=== PATIENT | female | born 1970 | race Caucasian/White ===

== ENCOUNTER 2016-05-12 18:45 | Emergency (ER) | payer OTHER ==
[2016-05-12 19:20] VITALS: TEMP 98.1; BMI 33.3
[2016-05-12] MEDS ORDERED: SODIUM CHLORIDE 500 ML IV STA (19:26)
[2016-05-12] MEDS ORDERED: METOCLOPRAMIDE HCL INJECTION 10 MG/2 ML VIAL IVPB ONE (19:26)
[2016-05-12] MEDS ORDERED: METOCLOPRAMIDE HCL INJECTION 10 MG/2 ML VIAL ONE (19:53)
--- NOTE | 2016-05-12 19:54 | PDOC ---
History of Present Illness - General Chief Complaint: Chest Pain Stated Complaint: CHEST PAIN Time Seen by Provider: 05/12/16 19:17 History Source: Patient, Family Exam Limitations: Language Barrier - History of Present Illness Initial Comments: 05/12/16 19:56 46yo Female patient with hx of DM, HTN, HLD, and Asthma presents to ED with Daughter c/o chest pain. Per daughter translate that patient was cooking when she experienced sharp chest pain from left side to right side down right arm, and she began screaming. Daughter called 911. Daughter also describes that recently while shopping at [employer] in [facility], she fell to her knees and this is when the symptoms or chest pains began. Patient currently taking Tramadol and Flexeril for pain but is unable to tolerate the medications due to vomiting. Denies n/v/d, fever, back pain, diff breathing, rash, abd pain, or any other complaints at this time. ---Dr. Heller PCP. Presenting Symptoms: Chest Pain Timing/Duration: denies: constant, getting worse, changing over time, intermittent, resolved prior to arrival, gone now, other Severity/Quality: reports: moderate, sharp. denies: mild, severe, aching, burning, dull, ingestion, pressure, stabbing, tearing, tightness, other Location: reports: substernal. denies: central, epigastric, shoulder, back, abdomen, other Chest Pain Radiation: reports: arms. denies: no radiation, jaw, neck, shoulders , back, sternal notch, epigastric, other Activities at Onset: reports: no specific activity Aspirin Received prior to arrival (Core Measure): Yes: 81 mg x 1, provided at home Associated Symptoms: No: Denies symptoms, Abdominal pain, Back Pain, Cough, Chest Pain/pressure, Diaphoresis, Dizziness, Edema, Fatigue, Fever/chills, Headache, Heartburn, Loss of Appetite, Nausea, Palpitations, Rash, Shortness of Breath, Swelling/lump in chest, Syncope, Vomiting, Weakness Past History - Travel Traveled outside of the country in the last 30 days: No Close contact w/someone who was outside of country & ill: No - Past Medical History Allergies/Adverse Reactions: Allergies Allergy/AdvReac Type Severity Reaction Status Date / Time No Known Allergies Allergy Verified 08/30/15 13:02 Home Medications: Ambulatory Orders Aspirin [ASA -] 81 mg PO DAILY 08/30/15 Isosorbide Mononitrate [Imdur -] 30 mg PO DAILY 08/30/15 Metformin HCl [Glucophage] PO BID 08/30/15 Acetaminophen [Tylenol .Regular Strength -] 650 mg PO Q6H PRN #0 tablet Valsartan [Diovan] 160 mg PO DAILY #30 tablet 08/31/15 Exenatide Microspheres [Bydureon Pen] 2 mg SQ ASDIR 05/12/16 Hydrocodone/Acetaminophen [[place] 5-325 Tablet] 1 each PO Q6H PRN #12 tablet MDD 4 tabs 05/12/16 Hydrocortisone 2.5% Lotion [Hytone 2.5% Lotion -] 1 applic TP DAILY 05/12/16 Metformin HCl [Glucophage -] 500 mg PO BID 05/12/16 Methocarbamol [Robaxin -] 500 mg PO Q6H PRN #20 tablet 05/12/16 Asthma: Yes Cancer: No Cardiac Disorders: No CVA: No CHF: No Dementia: No Diabetes: Yes GI Disorders: (GRD) Disorders: No HTN: Yes Hypercholesterolemia: Yes Liver Disease: No Seizures: No Thyroid Disease: No - Surgical History Cholecystectomy: Yes - Immunization History Immunization Up to Date: Yes - Psycho/Social/Smoking Cessation Hx Anxiety: No Suicidal Ideation: No Smoking Status: Yes (1pk/day) Smoking History: Current every day smoker Have you smoked in the past 12 months: Yes Number of Cigarettes Smoked Daily: 10 Information on smoking cessation initiated: No 'Breaking Loose' booklet given: 08/30/15 Hx Alcohol Use: No Drug/Substance Use Hx: No Substance Use Type: None Cardiac Specific PMH - Complaint Specific PMHX Abdominal Aortic Aneurysm: No Angina: No Cardiac Arrhythmia: No Cardiac Stent: No GERD: No Myocardial Infarction: No Pacemaker: No Pulmonary Embolus: No Valvular Heart Disease: No Peripheral Vascular Disease: No Review of Systems - Review of Systems Able to Perform ROS?: Yes Is the patient limited Yi proficient: No Constitutional: No: Chills, Fever Respiratory: No: Cough, Shortness of Breath, Stridor, Wheezing Cardiac (ROS): Yes: Chest Pain. No: Edema, Lightheadedness, Palpitations, Syncope, Chest Tightness ABD/GI: No: Constipated, Diarrhea, Nausea, Poor Appetite, Poor Fluid Intake, Rectal Bleeding, Vomiting, Abdominal cramping : No: Burning, Dysuria, Discharge, Frequency, Flank Pain, Hematuria, Pain Musculoskeletal: No: Back Pain, Muscle Weakness Neurological: No: Headache, Numbness, Paresthesia, Seizure, Tingling, Tremors, Weakness, Unsteady Gait, Ataxia All Other Systems: Reviewed and Negative *Physical Exam - Vital Signs Last Vital Signs Temp Pulse Resp BP Pulse Ox 98.1 F 72 18 133/92 96 05/12/16 19:00 05/12/16 22:17 05/12/16 22:17 05/12/16 22:17 05/12/16 22:17 - Physical Exam General Appearance: Yes: Nourished, Appropriately Dressed. No: Apparent Distress, Mild Distress, Moderate Distress, Severe Distress HEENT: positive: EOMI, CARLEY, Normal ENT Inspection, Normal Voice, Symmetrical, TMs Normal, Pharynx Normal. negative: Nasal Congestion, Rhinorrhea, TM Bulging , TM Dull, TM Erythema Neck: positive: Trachea midline, Supple. negative: Stridor, Lymphadenopathy (R) , Lymphadenopathy (L) Respiratory/Chest: positive: Lungs Clear, Normal Breath Sounds. negative: Respiratory Distress, Accessory Muscle Use, Labored Respiration, Rapid RR, Rhonchi, Stridor, Wheezing Cardiovascular: positive: Regular Rhythm, Regular Rate. negative: Edema, JVD, Murmur Gastrointestinal/Abdominal: positive: Normal Bowel Sounds, Soft, Distended. negative: Guarding, Rebound, Tenderness Musculoskeletal: positive: Normal Inspection. negative: CVA Tenderness Extremity: positive: Normal Capillary Refill, Normal Inspection, Normal Range of Motion. negative: Pedal Edema, Swelling Integumentary: positive: Normal Color, Dry, Warm. 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, Fully Oriented, Alert, Normal Mood/ Affect, Normal Response, Motor Strength 5/5 Heart Score/ECG Review - History History: Slightly suspicious - Electrocardiogram EKG: Normal - Age Age: </= 45 - Risk Factors Risk Factors Heart Score: Yes Hx Hypertension Based on the list above the patient has:: 1-2 risk factors - Troponin Troponin: </= normal limit - Score Heart Score - Total: 1 - ECG Impressions Normal ECG: Yes Non-specific ST Elevation: No Ischemic Changes: No Bradycardia: No Torsades pamela Pointes: No WPW: No ED Treatment Course - LABORATORY CBC & Chemistry Diagram: 05/12/16 19:28 05/12/16 19:28 - ADDITIONAL ORDERS Additional order review: Laboratory Results 05/12/16 05/12/16 05/12/16 21:00 20:50 19:28 INR Sodium 141 Potassium 3.8 Chloride 109 H Carbon Dioxide 22 Anion Gap 10 BUN 16 D Creatinine 0.7 Creat Clearance w eGFR > 60 Random Glucose 71 L D Calcium 8.9 Total Bilirubin 0.6 D AST 18 D ALT 24 Alkaline Phosphatase 86 Creatine Kinase CK-MB (CK-2) Troponin I Total Protein 7.4 Albumin 3.8 D TSH 1.45 Serum , Qual Negative Urine Color Yellow Urine Appearance Clear Urine pH 5.0 Ur Specific [place] 1.025 Urine Protein Negative Urine Glucose (UA) Negative Urine Ketones Negative Urine Blood 2+ H Urine Nitrite Negative Urine Bilirubin Negative Urine Urobilinogen Negative Ur Leukocyte Esterase Trace H Urine HCG, Qual Cancelled 05/12/16 05/12/16 19:28 19:00 INR 1.12 Sodium Potassium Chloride Carbon Dioxide Anion Gap BUN Creatinine Creat Clearance w eGFR Random Glucose Calcium Total Bilirubin AST ALT Alkaline Phosphatase Creatine Kinase 512 H D CK-MB (CK-2) 6.437 H Troponin I < 0.02 Total Protein Albumin TSH Serum , Qual Urine Color Urine Appearance Urine pH Ur Specific [place] Urine Protein Urine Glucose (UA) Urine Ketones Urine Blood Urine Nitrite Urine Bilirubin Urine Urobilinogen Ur Leukocyte Esterase Urine HCG, Qual 05/12/16 19:28 RBC 5.61 H MCV 77.4 L MCHC 32.4 RDW 15.3 MPV 7.7 Neutrophils % 59.5 Lymphocytes % 30.5 D Monocytes % 7.0 Eosinophils % 1.3 Basophils % 1.7 - RADIOLOGY Radiology Studies Ordered: Category Date Time Status CHEST PA & LAT [RAD] Stat Radiology 05/12/16 19:26 Taken - Medications Given in the ED: ED Medications Discontinued Medications Generic Name Dose Route Start Last Admin Trade Name Freq PRN Reason Stop Dose Admin Sodium Chloride 500 mls @ 500 mls/hr 05/12/16 19:26 05/12/16 20:02 Normal Saline - IV 05/12/16 20:25 500 mls/hr ASDIR STA Administration Metoclopramide HCl 10 mg 05/12/16 19:26 05/12/16 20:02 Reglan Injection - IVPB 05/12/16 19:27 10 mg ONCE ONE Administration Progress Note - Progress Note Progress Note: On re-evaluation patient in room talking on cell phone. Patient daughter translating that patient reports feeling much better. She denies Chest pain, SOB , or Diff breathing. Discussed with patient and daughter to f/u with PMD. Both verbalized understanding. *DC/Admit/Observation/Transfer Diagnosis at time of Disposition: Chest pain Qualifiers: Chest pain type: unspecified Qualified Code(s): R07.9 - Chest pain, unspecified - Discharge Dispostion Disposition: HOME Condition at time of disposition: Improved Admit: No - Prescriptions Prescriptions: Hydrocodone/Acetaminophen [G[place] 5-325 Tablet] 1 each PO Q6H PRN #12 tablet MDD 4 tabs PRN Reason: Pain Methocarbamol [Robaxin -] 500 mg PO Q6H PRN #20 tablet PRN Reason: Pain - Patient Instructions Printed Discharge Instructions: DI for Atypical Chest Pain Additional Instructions: FOLLOW UP WITH YOUR PRIMARY CARE PROVIDER THIS WEEK. CALL TO SCHEDULE APPOINTMENT. TAKE MEDICATIONS PRESCRIBED. DO NOT DRIVE, DRINK ALCOHOL, OR OPERATE HEAVY MACHINERY WHILE TAKING [place]. RETURN IF SYMPTOMS WORSEN, OR ANY CONCERNS FOR FURTHER EVALUATION. Print Language: BAHRAINI
[2016-05-12 20:14] LABS: BASOPHIL 1.7 % (0-2.0); EOSINOPHIL 1.3 % (0-4.5); MCH 25.1 pg (25.7-33.7); MCHC 32.4 g/dl (32.0-36.0); MEAN CELL VOLUME 77.4 fl (80-96); MEAN PLT VOLUME 7.7 fl (7.5-11.1); NEUTROPHILS 59.5 % (42.8-82.8); PLATELET COUNT 289 K/MM3 (134-434); RDW 15.3 % (11.6-15.6); WHITE BLOOD COUNT 11.5 K/mm3 (4.0-10.0)
[2016-05-12 20:36] LABS: ALBUMIN 3.8 g/dl (3.4-5.0); ANION GAP 10 (8-16); BILIRUBIN,TOTAL 0.6 mg/dL (0.2-1.0); CALCIUM 8.9 mg/dL (8.5-10.1); CO2 22 mmol/L (21-32); CREATININE 0.7 mg/dL (0.55-1.02); GLUCOSE,RANDOM 71 mg/dL (74-106); SGOT/AST 18 U/L (15-37); SGPT/ALT 24 U/L (12-78); TOT PROT 7.4 g/dl (6.4-8.2)
[2016-05-12 20:45] LABS: ALK PHOS 86 U/L (45-117); THYROID STIMULATING HORMONE 1.45 uIU/ml (0.358-3.74)
[2016-05-12 20:49] LABS: INR 1.12 (0.82-1.09); PROTHROMBIN TIME (PATIENT) 12.4 SEC (9.98-11.88)
[2016-05-12 21:20] LABS: URINE APPEARANCE CLEAR; URINE BILIRUBIN NEGATIVE (NEGATIVE); URINE COLOR YELLOW; URINE GLUCOSE (UA) NEGATIVE (NEGATIVE); URINE KETONE NEGATIVE (NEGATIVE); URINE NITRITE NEGATIVE (NEGATIVE); URINE PROTEIN NEGATIVE (NEGATIVE); URINE UROBILINOGEN NEGATIVE E.U./dl (0.2-1.0)
[2016-05-12 21:21] LABS: TROPONIN I < 0.02 ng/ml (0.00-0.05)
[2016-05-12 21:41] LABS: URINE BLOOD 2+ (NEGATIVE); URINE LEUK ESTERASE TRACE (NEGATIVE)
[2016-05-12 22:18] VITALS: BP 133/92; PULSE 72
--- NOTE | 2016-05-13 13:51 | EKG ---
Test Reason : Blood Pressure : / mmHG Vent. Rate : 079 BPM Atrial Rate : 079 BPM P-R Int : 136 ms QRS Dur : 064 ms QT Int : 378 ms P-R-T Axes : 030 021 040 degrees QTc Int : 433 ms NORMAL SINUS RHYTHM NORMAL ECG WHEN COMPARED WITH ECG OF 30-AUG-2015 20:43, NO SIGNIFICANT CHANGE WAS FOUND Confirmed by RICK SANTIZO MD ([id number]) on 05/13/2016 1:50:52 PM Referred By: Confirmed By:RICK SANTIZO MD
== END 2016-05-12 23:12 | disposition home or self-care (01) ==
LOC: JER 18:45
PROC: 3E033GC Introduction of Other Therapeutic Substance into Peripheral Vein, Percutaneous Approach (ICD-10-PCS; principal; 2016-05-12)
PROC: 3E0337Z Introduction of Electrolytic and Water Balance Substance into Peripheral Vein, Percutaneous Approach (ICD-10-PCS; 2016-05-12)
DX: R07.9 Chest pain, unspecified (principal); F17.210 Nicotine dependence, cigarettes, uncomplicated; E11.9 Type 2 diabetes mellitus without complications; I10 Essential (primary) hypertension; E78.00 Pure hypercholesterolemia, unspecified; J45.909 Unspecified asthma, uncomplicated
CPT/HCPCS: 36415; 71020-TC; 80053; 81003; 81015; 82550; 82553; 84443; 84484; 84703; 85025; 85610; 93005; 93010; 96361; 96374; 99284-25

== ENCOUNTER 2016-07-07 18:54 | Emergency (ER) | payer OTHER ==
[2016-07-07 19:25] VITALS: BP 121/90; PULSE 111; TEMP 97.9; BMI 36.6
--- NOTE | 2016-07-07 20:20 | PDOC ---
History of Present Illness - General History Source: Patient Exam Limitations: No Limitations - History of Present Illness Initial Comments: 07/07/16 20:29 The patient is a 46 year old female with significant past medical history of hypertension, hyperlipidemia, diabetes, and asthma who presents to the ED with persistent nausea, vomiting and diarrhea that began earlier today. Patient reports she was home when she drank a glass of water around 12-12:30pm (unsure if the water was tap or not) and subsequently developed diffuse abdominal pain, nausea, nonbloody vomiting and nonbloody/nonbilious diarrhea. She states no one else drank the water. The patient denies fever, chills, cough, SOB, chest pain, and palpitations. Allergies: NDKA Social History: Current everyday cigarette smoker (ppd). No alcohol or drug use reported. Past Surgical History: cholecystectomy PCP: Dr. Navi Heller <Skye Bearden - Last Filed: 07/07/16 23:57> - General History Source: Patient <Albin Ellington - Last Filed: 07/08/16 00:01> - General Chief Complaint: Vomiting/Diarrhea Stated Complaint: VOMITING/DIARRHEA Time Seen by Provider: 07/07/16 20:14 Past History <Skye Bearden - Last Filed: 07/07/16 23:57> - Past Medical History Asthma: Yes Cancer: No Cardiac Disorders: No CVA: No CHF: No Dementia: No Diabetes: Yes GI Disorders: (GRD) Disorders: No HTN: Yes Hypercholesterolemia: Yes Liver Disease: No Seizures: No Thyroid Disease: No - Surgical History Cholecystectomy: Yes - Immunization History Immunization Up to Date: Yes - Psycho/Social/Smoking Cessation Hx Anxiety: No Suicidal Ideation: No Smoking Status: Yes (1pk/day) Smoking History: Current every day smoker Have you smoked in the past 12 months: Yes Number of Cigarettes Smoked Daily: 20 Information on smoking cessation initiated: No 'Breaking Loose' booklet given: 08/30/15 Hx Alcohol Use: No Drug/Substance Use Hx: No Substance Use Type: None <Albin Ellington - Last Filed: 07/08/16 00:01> - Past Medical History Allergies/Adverse Reactions: Allergies Allergy/AdvReac Type Severity Reaction Status Date / Time No Known Allergies Allergy Verified 07/07/16 19:22 Home Medications: Ambulatory Orders Aspirin [ASA -] 81 mg PO DAILY 08/30/15 Isosorbide Mononitrate [Imdur -] 30 mg PO DAILY 08/30/15 Metformin HCl [Glucophage] PO BID 08/30/15 Acetaminophen [Tylenol .Regular Strength -] 650 mg PO Q6H PRN #0 tablet Valsartan [Diovan] 160 mg PO DAILY #30 tablet 08/31/15 Exenatide Microspheres [Bydureon Pen] 2 mg SQ ASDIR 05/12/16 Hydrocodone/Acetaminophen [[place] 5-325 Tablet] 1 each PO Q6H PRN #12 tablet MDD 4 tabs 05/12/16 Hydrocortisone 2.5% Lotion [Hytone 2.5% Lotion -] 1 applic TP DAILY 05/12/16 Metformin HCl [Glucophage -] 500 mg PO BID 05/12/16 Methocarbamol [Robaxin -] 500 mg PO Q6H PRN #20 tablet 05/12/16 Ondansetron [Zofran *Odt*] 4 mg SL TID #30 od.tablet 07/07/16 Pantoprazole Sodium [Protonix] 40 mg PO DAILY #30 tablet. 07/07/16 Review of Systems - Review of Systems Able to Perform ROS?: Yes Comments:: 07/07/16 20:29 CONSTITUTIONAL: Absent: fever, no chills, no fatigue EYES: Absent: visual changes ENT: Absent: ear pain, no sore throat CARDIOVASCULAR: Absent: chest pain, no palpitations RESPIRATORY: Absent: cough, no SOB GI: +abdominal pain, nausea, vomiting, diarrhea Absent: no constipation GENITOURINARY: Absent: dysuria, no frequency, no hematuria MUSCULOSKELETAL: Absent: back pain, no arthralgia, no myalgia SKIN: Absent: rash NEURO: Absent: headache <Bharrat,Skye - Last Filed: 07/07/16 23:57> *Physical Exam - Vital Signs Last Vital Signs Temp Pulse Resp BP Pulse Ox 97.9 F 111 H 16 121/90 96 07/07/16 19:23 07/07/16 19:23 07/07/16 19:23 07/07/16 19:23 07/07/16 19:23 - Physical Exam Comments: 07/07/16 20:29 GENERAL: Well-appearing, well-nourished. Mild distress. HEENT: Normocephalic, atraumatic. PERRL, EOM intact. CARDIOVASCULAR: Normal S1, S2. Regular rate and rhythm. PULMONARY: Clear to auscultation bilaterally. ABDOMEN: Soft, non-distended, minimal diffuse tenderness. No rebound or guarding. EXTREMITIES: Normal ROM in all four extremities. No gross deformities. SKIN: Warm, dry. No rash NEUROLOGICAL: No focal neurological deficits. <Skye Bearden - Last Filed: 07/07/16 23:57> - Vital Signs Last Vital Signs Temp Pulse Resp BP Pulse Ox 97.9 F 111 H 16 121/90 96 07/07/16 19:23 07/07/16 19:23 07/07/16 19:23 07/07/16 19:23 07/07/16 19:23 <Albin Ellington - Last Filed: 07/08/16 00:01> ED Treatment Course - LABORATORY CBC & Chemistry Diagram: 07/07/16 20:35 07/07/16 20:35 - RADIOLOGY Radiograph Interpretation: 07/07/16 23:57 EXAM: CT abdomen and pelvis without contrast Reviewed by Imaging community health consultant: FINDINGS: Lung bases are clear. The visualized cardiac chambers are normal size and configuration. Status post cholecystectomy without biliary duct dilation. Normal unenhanced liver, pancreas, spleen, adrenal glands and kidneys. The stomach and small bowel are normal. There is diffuse liquid stool without colonic wall thickening, suggesting a diarrheal illness. There is no diverticulosis or diverticulitis. There is no aortic aneurysm. There is no significant retroperitoneal lymphadenopathy. The appendix is normal. The uterus and adnexal structures are normal. Urinary bladder is unremarkable. There is no pelvic free fluid. No discrete pelvic lymphadenopathy is identified. There is partial sacralization of L5 with bilateral pseudarthrosis formation which could be a cause of chronic back pain IMPRESSION: Diffuse liquid stool, without colonic wall thickening, suggests a diarrheal illness. <Skye Bearden - Last Filed: 07/07/16 23:57> - LABORATORY CBC & Chemistry Diagram: 07/07/16 20:35 07/07/16 20:35 <Albin Ellington - Last Filed: 07/08/16 00:01> Medical Decision Making - Medical Decision Making 07/08/16 00:00 Dr. Ellington: The scribe's documentation has been prepared under my direction and personally reviewed by me in its entirery. I confirm that the note above accurately reflects all work, treatment, procedures, and medical decision making performed by me. Patient feels better. Pt appears to have a viral gastroenteritis. Pt to be discharged and follow up with GI as needed <Albin Ellington - Last Filed: 07/08/16 00:01> *DC/Admit/Observation/Transfer - Attestations Scribe Attestion: 07/07/16 20:29 Documentation prepared by Skye Bearden, acting as medical cash poster for Albin Ellington MD <Skye Bearden - Last Filed: 07/07/16 23:57> - Discharge Dispostion Admit: No <Albin Ellington - Last Filed: 07/08/16 00:01> Diagnosis at time of Disposition: Gastroenteritis - Discharge Dispostion Disposition: HOME Condition at time of disposition: Stable - Prescriptions Prescriptions: Pantoprazole Sodium [Protonix] 40 mg PO DAILY #30 tablet. Ondansetron [Zofran *Odt*] 4 mg SL TID #30 od.tablet - Referrals Referrals: Andrae Lunsford MD [Staff Physician] - - Patient Instructions Printed Discharge Instructions: DI for Viral Gastroenteritis -- Adult
[2016-07-07] MEDS ORDERED: ONDANSETRON 4 MG/2 ML VIAL IVPUSH STA (20:21)
[2016-07-07] MEDS ORDERED: SODIUM CHLORIDE 1,000 ML IV STA (20:21)
[2016-07-07] MEDS ORDERED: ONDANSETRON 4 MG/2 ML VIAL ONE (20:34)
[2016-07-07 20:49] LABS: BASOPHIL 0.8 % (0-2.0); EOSINOPHIL 0.1 % (0-4.5); MCHC 32.6 g/dl (32.0-36.0); MEAN CELL VOLUME 76.8 fl (80-96); MEAN PLT VOLUME 7.7 fl (7.5-11.1); PLATELET COUNT 369 K/MM3 (134-434); WHITE BLOOD COUNT 12.2 K/mm3 (4.0-10.0)
[2016-07-07 21:17] LABS: ALBUMIN 3.8 g/dl (3.4-5.0); CALCIUM 8.8 mg/dL (8.5-10.1); CREATININE 1.2 mg/dL (0.55-1.02); MAGNESIUM 2.3 mg/dL (1.8-2.4)
[2016-07-07 21:19] LABS: BILIRUBIN,TOTAL 0.7 mg/dL (0.2-1.0); TOT PROT 7.8 g/dl (6.4-8.2)
[2016-07-07] MEDS ORDERED: PANTOPRAZOLE 40 MG TABLET (FP) PO ONE (23:58)
== END 2016-07-07 20:30 | disposition home or self-care (01) ==
LOC: JER 18:54
PROC: 3E033GC Introduction of Other Therapeutic Substance into Peripheral Vein, Percutaneous Approach (ICD-10-PCS; principal; 2016-07-07)
DX: K52.9 Noninfective gastroenteritis and colitis, unspecified (principal); I10 Essential (primary) hypertension; E11.9 Type 2 diabetes mellitus without complications; E78.00 Pure hypercholesterolemia, unspecified
CPT/HCPCS: 36415; 74176-TC; 80053; 82150; 83690; 83735; 84703; 85025; 96374; 99282-25

== ENCOUNTER 2019-05-09 13:15 | Emergency (ER) | payer OTHER ==
[2019-05-09 14:20] VITALS: TEMP 97.8; BMI 31.6
[2019-05-09] MEDS ORDERED: ONDANSETRON 4 MG/2 ML VIAL IVPUSH ONE (14:20)
[2019-05-09] MEDS ORDERED: SODIUM CHLORIDE 1,000 ML IV STA (14:20)
--- NOTE | 2019-05-09 14:22 | PDOC ---
Rapid Medical Evaluation Chief Complaint: Blood Pressure Problem Time Seen by Provider: 05/09/19 14:18 Medical Evaluation: Allergies Allergy/AdvReac Type Severity Reaction Status Date / Time No Known Allergies Allergy Verified 05/09/19 14:20 Vital Signs Temp Pulse Resp BP Pulse Ox 97.8 F 100 H 18 161/103 H 98 05/09/19 14:16 05/09/19 14:16 05/09/19 14:16 05/09/19 14:16 05/09/19 14:16 05/09/19 14:21 Pt c/o: n/v weakness, fatigue x 4 days, hx htn and diabetes but does not take her meds Pt on brief exam: bp slightly elevated, afebrile Pt ordered for: labs, urine, zofran, ivf pt to proceed to the ED Discharge Disposition - Diagnosis UTI (urinary tract infection) - Discharge Dispostion Disposition: HOME Condition at time of disposition: Stable - Prescriptions Prescriptions: Cephalexin Monohydrate [Keflex -] 500 mg PO BID #20 capsule - Referrals - Patient Instructions Printed Discharge Instructions: Urinary Tract Infection Additional Instructions: Drink plenty of fluids Take ibuprofen every 6 hours as needed for pain Take cephalexin as prescribed Follow-up with your primary care doctor as soon as possible. You need to repeat urine test once your antibiotic is completed. We will call you if you're antibiotic needs to be changed. - Post Discharge Activity Work/School Note: Back to Work
[2019-05-09 17:05] LABS: EPI CELLS 2.8 /HPF (0-5/HPF); HYALINE CASTS 6 /lpf (0-8); URINE APPEARANCE CLEAR; URINE BACTERIA 70.7 /hpf (NEGATIVE); URINE BILIRUBIN NEGATIVE (NEGATIVE); URINE COLOR YELLOW; URINE GLUCOSE (UA) 2+ (NEGATIVE); URINE KETONE NEGATIVE (NEGATIVE); URINE LEUK ESTERASE 1+ (NEGATIVE); URINE NITRITE NEGATIVE (NEGATIVE); URINE PROTEIN 2+ (NEGATIVE); URINE RBC 15 /hpf (0-4); URINE UROBILINOGEN 0.2 mg/dL (0.2-1.0); URINE WBC 52 /hpf (0-5)
[2019-05-09 17:32] LABS: BASO % 0.8 % (0-2.0); EOS % 2.2 % (0-4.5); HEMATOCRIT 46.2 % (32.4-45.2); HEMOGLOBIN 14.8 GM/dL (10.7-15.3); LYMPH % 28.9 % (8-40); MCH 25.8 pg (25.7-33.7); MCHC 32.1 g/dl (32.0-36.0); MEAN CELL VOLUME 80.4 fl (80-96); MEAN PLT VOLUME 8.6 fl (7.5-11.1); MONO % 7.2 % (3.8-10.2); NEUT % 60.9 % (42.8-82.8); PLATELET COUNT 308 K/MM3 (134-434); RBC 5.75 M/mm3 (3.60-5.2); RDW 14.4 % (11.6-15.6); WHITE BLOOD COUNT 10.4 K/mm3 (4.0-10.0)
[2019-05-09] MEDS ORDERED: ONDANSETRON 4 MG/2 ML VIAL ONE (17:50)
--- NOTE | 2019-05-09 17:54 | PDOC ---
History of Present Illness - General Chief Complaint: Blood Pressure Problem Stated Complaint: PAIN Time Seen by Provider: 05/09/19 14:18 History Source: Patient Exam Limitations: Clinical Condition - History of Present Illness Initial Comments: 05/09/19 17:49 Patient with past medical history of hypertension and diabetes noncompliant with medication does not recall what medication she takes for symptoms as he has not taken over a month and report has not seen PCP for a while and does not remember the name of her PCP present with complaint of 4-day history of left upper quadrant abdominal and flank pain radiating to the back with headache, nausea. Patient reported vomiting multiple times today. Patient has not taken anything for symptoms. Patient also reported bloating abdominal distention. Denies diarrhea or constipation. Patient denies any other symptoms Is this a multiple visit Asthma Patient?: No Timing/Duration: other (4 days) Past History - Past Medical History Allergies/Adverse Reactions: Allergies Allergy/AdvReac Type Severity Reaction Status Date / Time No Known Allergies Allergy Verified 05/09/19 14:20 Home Medications: Ambulatory Orders Aspirin [ASA -] 81 mg PO DAILY 08/30/15 Isosorbide Mononitrate [Imdur -] 30 mg PO DAILY 08/30/15 Metformin HCl [Glucophage] 500 mg PO BID 08/30/15 Valsartan [Diovan] 160 mg PO DAILY #30 tablet 08/31/15 metFORMIN HCL [Glucophage -] 500 mg PO BID 05/12/16 Pantoprazole Sodium [Protonix] 40 mg PO DAILY #30 tablet. 07/07/16 Asthma: Yes Cancer: No Cardiac Disorders: No CVA: No COPD: No CHF: No Dementia: No Diabetes: Yes GI Disorders: (GRD) Disorders: No HTN: Yes Hypercholesterolemia: Yes Liver Disease: No Seizures: No Thyroid Disease: No - Surgical History Cholecystectomy: Yes - Immunization History Immunization Up to Date: Yes - Psycho Social/Smoking Cessation Hx Smoking Status: Yes (1pk/day) Smoking History: Never smoked Have you smoked in the past 12 months: Yes Number of Cigarettes Smoked Daily: 20 'Breaking Loose' booklet given: 08/30/15 Hx Alcohol Use: No Drug/Substance Use Hx: No Substance Use Type: None Review of Systems - Review of Systems Able to Perform ROS?: Yes Is the patient limited Italian proficient: No Constitutional: No: Chills, Fever, Malaise HEENTM: No: Symptoms Reported, See HPI, Eye Pain, Blurred Vision, Tearing, Recent change in vision, Double Vision, Cataracts, Ear Pain, Ocular Prothesis, Ear Discharge, Nose Pain, Nose Congestion, Tinnitus, Nose Bleeding, Hearing Loss , Throat Pain, Throat Swelling, Mouth Pain, Dental Problems, Difficulty Swallowing, Mouth Swelling, Other Respiratory: No: Symptoms reported, See HPI, Cough, Orthopnea, Shortness of Breath, SOB with Exertion, SOB at Rest, Stridor, Wheezing, Productive cough, Hemoptysis, Other Cardiac (ROS): No: Symptoms Reported, See HPI, Chest Pain, Edema, Irregular Heart Rate, Lightheadedness, Palpitations, Syncope, Chest Tightness, Other ABD/GI: Yes: Symptoms Reported, See HPI, Nausea, Vomiting, Abdominal cramping ( LUQ pain). No: Abd. Pain w/ defecation, Blood Streaked Bowels, Constipated, Diarrhea, Difficulty Swallowing, Poor Appetite : No: Symptoms Reported, Burning, Discharge, Frequency, Urgency Musculoskeletal: No: Symptoms Reported All Other Systems: Reviewed and Negative *Physical Exam - Vital Signs Last Vital Signs Temp Pulse Resp BP Pulse Ox 97.8 F 100 H 18 161/103 H 98 05/09/19 14:16 05/09/19 14:16 05/09/19 14:16 05/09/19 14:16 05/09/19 14:16 - Physical Exam 05/09/19 17:55 GENERAL: Well developed, well nourished. Awake and alert. No acute distress. HEENT: Normocephalic, atraumatic. PERRLA, EOMI. No conjunctival pallor. Sclera are non-icteric. Moist mucous membranes. Oropharynx is clear. NECK: Supple. Full ROM. CARDIOVASCULAR: Regular rate and rhythm. No murmurs, rubs, or gallops. Distal pulses are 2+ and symmetric. PULMONARY: No evidence of respiratory distress. Lungs clear to auscultation bilaterally. No wheezing, rales or rhonchi. ABDOMINAL: Soft. Moderate tenderness to left upper quadrant and left flank area. Non- distended. No rebound or guarding. No organomegaly. Normoactive bowel sounds. MUSCULOSKELETAL Normal range of motion at all joints. SKIN: Warm and dry. Normal capillary refill. No rashes. No jaundice. NEUROLOGICAL: Alert, awake, appropriate. Gait is normal without ataxia. PSYCHIATRIC: Cooperative. Good eye contact. Appropriate mood General Appearance: Yes: Nourished, Appropriately Dressed. No: Apparent Distress ED Treatment Course - LABORATORY CBC & Chemistry Diagram: 05/09/19 15:27 05/09/19 15:27 - ADDITIONAL ORDERS Additional order review: Laboratory Results 05/09/19 15:23 Urine Color Yellow Urine Appearance Clear Urine pH 6.0 Ur Specific [place] 1.020 Urine Protein 2+ H Urine Glucose (UA) 2+ H Urine Ketones Negative Urine Blood 2+ H Urine Nitrite Negative Urine Bilirubin Negative Urine Urobilinogen 0.2 Ur Leukocyte Esterase 1+ H Urine WBC (Auto) 52 Urine RBC (Auto) 15 Urine Casts (Auto) 6 U Epithel Cells (Auto) 2.8 Urine Bacteria (Auto) 70.7 - RADIOLOGY Radiology Studies Ordered: Category Date Time Status SPIRAL- RENAL-STONE CT [CT] Stat CT Scan 05/09/19 17:42 Ordered Medical Decision Making - Medical Decision Making 05/09/19 17:51 Patient with past medical history of hypertension and diabetes noncompliant with medication does not recall what medication she takes for symptoms as he has not taken over a month and report has not seen PCP for a while and does not remember the name of her PCP present with complaint of 4-day history of left upper quadrant abdominal and flank pain radiating to the back with headache, nausea. Patient reported vomiting multiple times today. Patient has not taken anything for symptoms. Patient also reported bloating abdominal distention. Denies diarrhea or constipation. Patient denies any other symptoms Exam significant for moderate tenderness to left upper quadrant abdominal flank area. Mild abdominal distention on exam. Patient in no acute distress. Patient afebrile. Symptoms likely renal stone versus pyelonephritis versus indigestion. CBC, CMP and lipase lab ordered. Spiral CT ordered to rule out acute abdominal pathology. IV hydration with normal saline 1 L ordered. Tylenol 1 g IV ordered for pain. 05/09/19 19:32 Patient labs shows no acute abnormality. pt pending abd CT. Pt signed out to [facility]oma[facility] for f/u care Discharge - Discharge Information Problems reviewed: Yes Clinical Impression/Diagnosis: Left flank pain Nausea & vomiting Qualifiers: Vomiting type: bilious vomiting Qualified Code(s): R11.14 - Bilious vomiting Condition: Stable - Follow up/Referral - Patient Discharge Instructions - Post Discharge Activity
[2019-05-09] MEDS ORDERED: ACETAMINOPHEN 1000 MG/100 ML VIAL (NON FORMULARY) IVPB ONE (18:00)
[2019-05-09] MEDS ORDERED: ACETAMINOPHEN INJECTION 100 ML IVPB ONE (18:04)
[2019-05-09 18:26] LABS: ALBUMIN 3.3 g/dl (3.4-5.0); ALK PHOS 148 U/L (45-117); ANION GAP 7 MMOL/L (8-16); BILIRUBIN,TOTAL 0.3 mg/dL (0.2-1); BLOOD UREA NITROGEN 13.2 mg/dL (7-18); CALCIUM 8.8 mg/dL (8.5-10.1); CHLORIDE 106 mmol/L (98-107); CO2 27 mmol/L (21-32); CREATININE 0.8 mg/dL (0.55-1.3); GLUCOSE,RANDOM 202 mg/dL (74-106); SGOT/AST 15 U/L (15-37); SGPT/ALT 25 U/L (13-61); SODIUM 139 mmol/L (136-145)
[2019-05-09 19:51] LABS: LIPASE 237 U/L (73-393); MAGNESIUM 2.2 mg/dL (1.8-2.4)
--- NOTE | 2019-05-09 20:26 | PDOC ---
*Physical Exam - Vital Signs Last Vital Signs Temp Pulse Resp BP Pulse Ox 97.8 F 100 H 18 161/103 H 98 05/09/19 14:16 05/09/19 14:16 05/09/19 14:16 05/09/19 14:16 05/09/19 14:16 ED Treatment Course - LABORATORY CBC & Chemistry Diagram: 05/09/19 15:27 05/09/19 15:27 - ADDITIONAL ORDERS Additional order review: Laboratory Results 05/09/19 05/09/19 15:27 15:23 Sodium 139 Potassium 4.0 Chloride 106 Carbon Dioxide 27 Anion Gap 7 L BUN 13.2 Creatinine 0.8 Est GFR (CKD-EPI)AfAm 101.75 Est GFR (CKD-EPI)NonAf 87.79 Random Glucose 202 H Calcium 8.8 Magnesium 2.2 Total Bilirubin 0.3 AST 15 ALT 25 Alkaline Phosphatase 148 H Creatine Kinase 185 Creatine Kinase Index 1.7 CK-MB (CK-2) 3.2 Troponin I < 0.02 Total Protein 7.0 Albumin 3.3 L Lipase 237 Urine Color Yellow Urine Appearance Clear Urine pH 6.0 Ur Specific [place] 1.020 Urine Protein 2+ H Urine Glucose (UA) 2+ H Urine Ketones Negative Urine Blood 2+ H Urine Nitrite Negative Urine Bilirubin Negative Urine Urobilinogen 0.2 Ur Leukocyte Esterase 1+ H Urine WBC (Auto) 52 Urine RBC (Auto) 15 Urine Casts (Auto) 6 U Epithel Cells (Auto) 2.8 Urine Bacteria (Auto) 70.7 05/09/19 15:27 RBC 5.75 H MCV 80.4 MCHC 32.1 RDW 14.4 MPV 8.6 D Neutrophils % 60.9 D Lymphocytes % 28.9 D Monocytes % 7.2 D Eosinophils % 2.2 D Basophils % 0.8 - Medications Given in the ED: ED Medications Discontinued Medications Generic Name Dose Route Start Last Admin Trade Name Freq PRN Reason Stop Dose Admin Acetaminophen 1,000 mg 05/09/19 18:00 05/09/19 18:10 Ofirmev Injection - IVPB 05/09/19 18:01 1,000 mg ONCE ONE Administration Sodium Chloride 1,000 mls @ 1,000 mls/hr 05/09/19 14:20 05/09/19 18:01 Normal Saline - IV 05/09/19 15:19 1,000 mls/hr ASDIR STA Administration Ondansetron HCl 4 mg 05/09/19 14:20 05/09/19 18:01 Zofran Injection IVPUSH 05/09/19 14:21 4 mg ONCE ONE Administration Medical Decision Making - Medical Decision Making 05/09/19 20:25 right AC IV infiltrated. IV removed. patient refused another IV for hydration and pain medication 0 patient is requesting to be d./c ed will adrian sapp Discharge - Discharge Information Problems reviewed: Yes Clinical Impression/Diagnosis: UTI (urinary tract infection) Qualifiers: Urinary tract infection type: acute cystitis Hematuria presence: without hematuria Qualified Code(s): N30.00 - Acute cystitis without hematuria Condition: Stable Disposition: HOME - Additional Discharge Information Prescriptions: Cephalexin Monohydrate [Keflex -] 500 mg PO BID #20 capsule - Follow up/Referral - Patient Discharge Instructions Patient Printed Discharge Instructions: Urinary Tract Infection Additional Instructions: Drink plenty of fluids Take ibuprofen every 6 hours as needed for pain Take cephalexin as prescribed Follow-up with your primary care doctor as soon as possible. You need to repeat urine test once your antibiotic is completed. We will call you if you're antibiotic needs to be changed. - Post Discharge Activity Work/Back to School Note: Back to Work
[2019-05-09 20:50] VITALS: BP 134/92; PULSE 71
--- NOTE | 2019-05-10 11:39 | EKG ---
Test Reason : Blood Pressure : / mmHG Vent. Rate : 076 BPM Atrial Rate : 076 BPM P-R Int : 158 ms QRS Dur : 064 ms QT Int : 390 ms P-R-T Axes : 075 025 048 degrees QTc Int : 438 ms NORMAL SINUS RHYTHM POSSIBLE LEFT ATRIAL ENLARGEMENT NONSPECIFIC T WAVE ABNORMALITY ABNORMAL ECG WHEN COMPARED WITH ECG OF 12-MAY-2016 19:05, NONSPECIFIC T WAVE ABNORMALITY NOW EVIDENT IN LATERAL LEADS Confirmed by Dom Peacock MD ([id number]) on 05/10/2019 11:38:50 AM Referred By: Confirmed By:Dom Peacock MD
== END 2019-05-09 21:26 | disposition home or self-care (01) ==
LOC: JER 13:15
PROC: 3E033GC Introduction of Other Therapeutic Substance into Peripheral Vein, Percutaneous Approach (ICD-10-PCS; principal; 2019-05-09)
PROC: 3E033NZ Introduction of Analgesics, Hypnotics, Sedatives into Peripheral Vein, Percutaneous Approach (ICD-10-PCS; 2019-05-09)
DX: N30.00 Acute cystitis without hematuria (principal); I10 Essential (primary) hypertension; E11.9 Type 2 diabetes mellitus without complications; Z79.84 Long term (current) use of oral hypoglycemic drugs; K21.9 Gastro-esophageal reflux disease without esophagitis; Z87.09 Personal history of other diseases of the respiratory system
CPT/HCPCS: 36415; 74176-TC; 80053; 81003; 82550; 82553; 83690; 83735; 84484; 85025; 87077; 87086; 93005; 93010; 96374; 96375; 99283-25; J0131; J7030

== ENCOUNTER 2019-11-20 17:43 | Emergency (ER) | payer OTHER ==
--- NOTE | 2019-11-20 19:06 | PDOC ---
History of Present Illness - General Chief Complaint: Pain Stated Complaint: POSSIBLE Time Seen by Provider: 11/20/19 19:05 Past History - Medical History Allergies/Adverse Reactions: Allergies Allergy/AdvReac Type Severity Reaction Status Date / Time No Known Allergies Allergy Verified 07/27/19 10:54 Home Medications: Ambulatory Orders Aspirin [ASA -] 81 mg PO DAILY 08/30/15 Isosorbide Mononitrate [Imdur -] 30 mg PO DAILY 08/30/15 Metformin HCl [Glucophage] 500 mg PO BID 08/30/15 Valsartan [Diovan] 160 mg PO DAILY #30 tablet 08/31/15 metFORMIN HCL [Glucophage -] 500 mg PO BID 05/12/16 Pantoprazole Sodium [Protonix] 40 mg PO DAILY #30 tablet. 07/07/16 Cephalexin Monohydrate [Keflex -] 500 mg PO BID #20 capsule 05/09/19 Asthma: Yes Cancer: No Cardiac Disorders: No CVA: No COPD: No CHF: No Dementia: No Diabetes: Yes GI Disorders: (GRD) Disorders: No HTN: Yes Hypercholesterolemia: Yes Liver Disease: No Seizures: No Thyroid Disease: No - Surgical History Cholecystectomy: Yes - Immunization History Immunization Up to Date: Yes - Psycho-Social/Smoking History Smoking Status: Yes (1pk/day) Smoking History: Never smoked Have you smoked in the past 12 months: Yes Number of Cigarettes Smoked Daily: 20 'Breaking Loose' booklet given: 08/30/15
--- NOTE | 2019-11-20 19:18 | PDOC ---
History of Present Illness - General Chief Complaint: Pain Stated Complaint: POSSIBLE Time Seen by Provider: 11/20/19 19:05 History Source: Patient Exam Limitations: Language Barrier (Albanian) - History of Present Illness Initial Comments: 11/20/19 19:18 Nelida Vernon is a 49F with PMH [place], TIA, poorly controlled HTN/DM presenting with concern for and abdominal pain. Patient reports LMP February 2019 and unprotected sexual intercourse with her prior and in the intervening months. Last few weeks abdomen has grown in size and associated with elevated blood pressure. No discharge. Patient says she can feel movement in her abdomen. No N/V/C/D, able to urinate but slow output, no hematuria or dysuria. No history of CHF or hepatic disease. Has seven children, one . Patient denies JOSE, vision changes, but has SOB and chest pain with exertion up stairs and walking that has been worsening in recent weeks. Last 3 days has had slow onset abdominal pain, generalized, deeper, unrelated to trauma or movement, has not taken medications to alleviate. Here for evaluation of and abdominal pain. Denies fever/chill, coughing, covid-19 exposure. NKDA. Denies taking medications. Denies alcohol/drug/tobacco use. Past History - Medical History Allergies/Adverse Reactions: Allergies Allergy/AdvReac Type Severity Reaction Status Date / Time No Known Allergies Allergy Verified 07/27/19 10:54 Home Medications: Ambulatory Orders Aspirin [ASA -] 81 mg PO DAILY 08/30/15 Isosorbide Mononitrate [Imdur -] 30 mg PO DAILY 08/30/15 Metformin HCl [Glucophage] 500 mg PO BID 08/30/15 Valsartan [Diovan] 160 mg PO DAILY #30 tablet 08/31/15 metFORMIN HCL [Glucophage -] 500 mg PO BID 05/12/16 Pantoprazole Sodium [Protonix] 40 mg PO DAILY #30 tablet. 07/07/16 Cephalexin Monohydrate [Keflex -] 500 mg PO BID #20 capsule 05/09/19 Famotidine [Pepcid -] 20 mg PO DAILY #14 tablet 11/21/19 Asthma: Yes Cancer: No Cardiac Disorders: No CVA: No COPD: No CHF: No Dementia: No Diabetes: Yes GI Disorders: (GRD) Disorders: No HTN: Yes Hypercholesterolemia: Yes Liver Disease: No Seizures: No Thyroid Disease: No - Surgical History Cholecystectomy: Yes - Immunization History Immunization Up to Date: Yes - Psycho-Social/Smoking History Smoking Status: Yes (1pk/day) Smoking History: Never smoked Have you smoked in the past 12 months: Yes Number of Cigarettes Smoked Daily: 20 'Breaking Loose' booklet given: 08/30/15 Review of Systems - Review of Systems Able to Perform ROS?: Yes Constitutional: No: Symptoms Reported HEENTM: No: Symptoms Reported Respiratory: Yes: Orthopnea, Shortness of Breath, SOB with Exertion. No: SOB at Rest Cardiac (ROS): Yes: Chest Pain. No: Irregular Heart Rate, Palpitations, Syncope ABD/GI: Yes: Abdominal cramping. No: Constipated, Diarrhea, Nausea, Poor Appetite, Poor Fluid Intake, Vomiting : No: Symptoms Reported Musculoskeletal: No: Symptoms Reported Integumentary: No: Symptoms Reported Neurological: No: Symptoms reported Endocrine: No: Symptoms Reported Hematologic/Lymphatic: No: Symptoms Reported All Other Systems: Reviewed and Negative *Physical Exam - Physical Exam General Appearance: Yes: Nourished, Appropriately Dressed, Obese, Other (resting comfortably in bed). No: Apparent Distress HEENT: positive: EOMI, CARLEY, Normal Voice, Symmetrical, Pharynx Normal, Hearing Decreased. negative: Scleral Icterus (R), Scleral Icterus (L), Pharyngeal Erythema, Tonsillar Exudate, Tonsillar Erythema Neck: positive: Trachea midline, Normal Thyroid, Supple. negative: Tender, Rigid, Lymphadenopathy (R), Lymphadenopathy (L), Tender lateral, Tender midline Respiratory/Chest: positive: Lungs Clear, Normal Breath Sounds. negative: Chest Tender, Respiratory Distress, Accessory Muscle Use, Crackles, Rales, Rhonchi, Stridor, Wheezing Cardiovascular: positive: Regular Rhythm, Regular Rate. negative: Murmur, Tachycardia Gastrointestinal/Abdominal: positive: Normal Bowel Sounds, Soft, Protuberent, Distended, Other (no pulsatile masses, unable to palpate the uterine fundus, no evidence of movement). negative: Tender, Pulsatile Mass, Guarding, Rebound, Hernia Musculoskeletal: positive: Normal Inspection. negative: CVA Tenderness, CVA Tenderness (R), CVA Tenderness (L), Decreased Range of Motion, Vertebral Tenderness Extremity: positive: Normal Capillary Refill, Normal Inspection, Normal Range of Motion, Pelvis Stable. negative: Tender, Delayed Capillary Refill, Pedal Edema, Swelling Integumentary: positive: Normal Color, Dry, Warm Neurologic: positive: Fully Oriented, Alert, Normal Mood/Affect, Normal Response, Motor Strength 5/5, Other (gait normal) ED Treatment Course - LABORATORY CBC & Chemistry Diagram: 11/20/19 21:04 11/20/19 21:04 Medical Decision Making - Medical Decision Making 11/20/19 22:03 Patient presents with abd pain and HTN, LMP 10 months ago, here for concern for , swollen abdomen, and abdominal pain for last 3 days. Physical exam inconsistent with , but will evaluate. Ddx includes liver/ovarian pathology, CHF, complication, GI pathology, UTI. VS show HTN, will give PO medication to correct once labs back, no symptoms of HTN emergency. Ordering CBC/CMP/CP/lactate/Coags/BNP/UA/UC/serum . Depending on test, will order US for eval vs. CT for evaluation of intra- abdominal pathology. 11/20/19 22:09 Labs notable for: - CBC WNL - Coags WNL - Beta quant WNL - lactate 2.3, will give IVF - BG 178 - BM WNL - UA positive for protein, glucose, blood test negative. Low suspicion of aortic dissection or mesenteric ischemia on presentation and exam. Ordering CTAP with IVC of patient's abdomen to evaluate for intra-abdominal pathology. 11/20/19 23:02 Patient reports extreme anxiety with CT scan and refuses to go inside. Discussed with patient over support group manager phone, has gotten CT scans in the past but with some sedation. Giving 0.5mg Ativan for anxiolysis and will bring back to CT scan. 11/21/19 00:26 CT scan shows no acute pathology, 2.2cm left ovarian cyst, no other concerning findings. Patient received IVF and Ofirmev, pain controlled. Giving PO anti-HTN medication as well as GI cocktail. Repeating lactic acid after IVF. 11/21/19 01:59 Repeat lactate decreased and WNL. Pending ECG for discharge. 11/21/19 02:08 ECG NSR with low voltage, Hr 74, QTc 594, TWI in V3-V6. Results discussed with patient, no emergent pathology noted. Discussed possible menopause, ovarian cyst, and abdominal swelling, referrals given to [facility] and GI. Safe for discharge home with f/u. Discharge - Discharge Information Problems reviewed: Yes Clinical Impression/Diagnosis: Abdominal pain Qualifiers: Abdominal location: generalized Qualified Code(s): R10.84 - Generalized abdominal pain Condition: Stable - Additional Discharge Information Prescriptions: Famotidine [Pepcid -] 20 mg PO DAILY #14 tablet - Follow up/Referral Referrals: Andrae Lunsford MD [Staff Physician] - Garo De Guzman MD [Staff Physician] - - Patient Discharge Instructions Patient Printed Discharge Instructions: DI for Abdominal Pain-Adult Additional Instructions: Hoy te evaluaron por dolor abdominal. Cassi laboratorios no estaban preocupados por rosana infeccin. No estas embarazada Reilly tomografa computarizada no muestra ningn problema que necesite tratamiento en jessica momento. Reilly dolor probablemente sea causado por el reflujo cido del estmago y le joy recetado un medicamento llamado famotidina. No est mook por qu reilly abdomen est aumentando de tamao. Necesita nathan a reilly mdico de cabecera y un gastrointestinal joaquin la prxima semana para evaluar ms a fondo el reflujo y los posibles problemas hepticos. T iene un quiste de 2,2 cm en el ovario mono y necesita nathan a un obstetra / gineclogo para un seguimiento. Se jose proporcionado rosana remisin a un mdico gastrointestinal. Si experimenta un empeoramiento del dolor, nuseas, vmitos, dolor de pecho, dificultad para respirar o cualquier otro sntoma nuevo o preocupante, regrese a la kumar de emergencias. Today you were evaluated for abdominal pain. Your labs were not concerning for an infection. You are not . Your CT scan does not show any problems that need treatment at this time. Your pain is probably being caused by stomach acid reflux, and a medicine called famotidine has been prescribed. It is unclear why your abdomen is growing in size. You need to see your primary doctor and a GI in the next week to further evaluate for reflux and possible liver problems. A referral to a GI doctor has been provided. If you experience any worsening pain, nausea, vomiting, chest pain, difficulty breathing, or any other new or concerning symptoms, please return to the emergency room. Print Language: WELSH - Post Discharge Activity
[2019-11-20 21:32] LABS: BASO % 1.2 % (0-2.0); EOS % 1.7 % (0-4.5); HEMATOCRIT 45.5 % (32.4-45.2); HEMOGLOBIN 14.9 GM/dL (10.7-15.3); LYMPH % 36.6 % (8-40); MCH 26.7 pg (25.7-33.7); MCHC 32.8 g/dl (32.0-36.0); MEAN CELL VOLUME 81.6 fl (80-96); MEAN PLT VOLUME 8.3 fl (7.5-11.1); MONO % 8.6 % (3.8-10.2); NEUT % 51.9 % (42.8-82.8); PLATELET COUNT 275 K/MM3 (134-434); RBC 5.58 M/mm3 (3.60-5.2); RDW 13.9 % (11.6-15.6); WHITE BLOOD COUNT 8.6 K/mm3 (4.0-10.0)
[2019-11-20 21:50] LABS: INR 0.93 (0.83-1.09)
[2019-11-20 21:53] LABS: ACTIVATED PTT 26.1 SECONDS (25.2-36.5)
[2019-11-20 22:16] LABS: ALBUMIN 3.2 g/dl (3.4-5.0); ALK PHOS 134 U/L (45-117); ANION GAP 6 MMOL/L (8-16); BILIRUBIN,TOTAL 0.4 mg/dL (0.2-1); BLOOD UREA NITROGEN 12.5 mg/dL (7-18); CALCIUM 9.2 mg/dL (8.5-10.1); CHLORIDE 103 mmol/L (98-107); CO2 30 mmol/L (21-32); CREATININE 0.7 mg/dL (0.55-1.3); GLUCOSE,RANDOM 178 mg/dL (74-106); N-TERMINAL BNP 56.4 pg/ml (5-125); POTASSIUM 4.2 mmol/L (3.5-5.1); SGOT/AST 25 U/L (15-37); SGPT/ALT 24 U/L (13-61); SODIUM 139 mmol/L (136-145); TOT PROT 6.8 g/dl (6.4-8.2)
[2019-11-20] MEDS ORDERED: ACETAMINOPHEN 1000 MG/100 ML VIAL (NON FORMULARY) IVPB ONE (22:21)
[2019-11-20] MEDS ORDERED: SODIUM CHLORIDE 0.9% 500 ML INFUS.BAG IV ONE (22:21)
[2019-11-20 22:26] LABS: PH,URINE 5.5 (5.0-8.0); URINE APPEARANCE Clear; URINE BILIRUBIN Negative (NEGATIVE); URINE COLOR Yellow; URINE GLUCOSE (UA) 1+ (NEGATIVE); URINE KETONE Negative (NEGATIVE); URINE LEUK ESTERASE Negative (NEGATIVE); URINE NITRITE Negative (NEGATIVE); URINE PROTEIN 1+ (NEGATIVE); URINE UROBILINOGEN 0.2 mg/dL (0.2-1.0)
[2019-11-20] MEDS ORDERED: ACETAMINOPHEN INJECTION 100 ML IVPB ONE (22:35)
[2019-11-20 22:59] LABS: HCG,QUALITATIVE URINE NEGATIVE
[2019-11-20] MEDS ORDERED: LORazepam 2 MG/ML SDV VIAL ONE (23:13)
[2019-11-21] MEDS ORDERED: FAMOTIDINE 20 MG/50 ML IVPB 20 MG/50 ML MG IVPB ONE ×2 (00:49→01:40)
[2019-11-21] MEDS ORDERED: MAG HYDROX/AL HYDROX/SIMETH -MYLANTA- ORAL SUSPENSION PO ONE (00:49)
[2019-11-21] MEDS ORDERED: VALSARTAN 40 MG TABLET (FP) PO ONE (00:55)
--- NOTE | 2019-11-21 00:59 | PDOC ---
Documentation entered by Jessica Lou SCRIBE, acting as scribe for Armando Salas DO. Armando Salas DO: This documentation has been prepared by the Carmine aguilar Xhesika, SCRIBE, under my direction and personally reviewed by me in its entirety. I confirm that the documentation accurately reflects all work, treatment, procedures, and medical decision making performed by me. Attending Attestation - Resident Resident Name: Salvador Alba - ED Attending Attestation I have performed the following: I have examined & evaluated the patient, The case was reviewed & discussed with the resident, I agree w/resident's findings & plan - HPI HPI: 11/20/19 20:31 see resident HPI - Physicial Exam PE: 11/20/19 20:33 agree with resident exam - Medical Decision Making 11/20/19 20:33 49y/o F with who presents with abdominal pain and concern for HCG negative Abd diffuse tender Plan for ctap pain control and reassessment 12/01/19 23:47 Discharge - Discharge Information Problems reviewed: Yes Clinical Impression/Diagnosis: Abdominal pain Qualifiers: Abdominal location: generalized Qualified Code(s): R10.84 - Generalized abdominal pain Condition: Stable Disposition: HOME - Additional Discharge Information Prescriptions: Famotidine [Pepcid -] 20 mg PO DAILY #14 tablet - Follow up/Referral Referrals: Andrae Lunsford MD [Staff Physician] - Garo De Guzman MD [Staff Physician] - - Patient Discharge Instructions Patient Printed Discharge Instructions: DI for Abdominal Pain-Adult Additional Instructions: Hoy te evaluaron por dolor abdominal. Cassi laboratorios no estaban preocupados por rosana infeccin. No estas embarazada Reilly tomografa computarizada no muestra ningn problema que necesite tratamiento en jessica momento. Reilly dolor probablemente sea causado por el reflujo cido del estmago y le joy recetado un medicamento llamado famotidina. No est mook por qu reilly abdomen est aumentando de tamao. Necesita nathan a reilly mdico de cabecera y un gastrointestinal joaquin la prxima semana para evaluar ms a fondo el reflujo y los posibles problemas hepticos. Tiene un quiste de 2,2 cm en el ovario mono y necesita nathan a un obstetra / gineclogo para un seguimiento. Se [place] proporcionado rosana remisin a un mdico gastrointestinal. Si experimenta un empeoramiento del dolor, nuseas, vmitos, dolor de pecho, dificultad para respirar o cualquier otro sntoma nuevo o preocupante, regrese a la kumar de emergencias. Today you were evaluated for abdominal pain. Your labs were not concerning for an infection. You are not . Your CT scan does not show any problems that need treatment at this time. Your pain is probably being caused by stomach acid reflux, and a medicine called famotidine has been prescribed. It is unclear why your abdomen is growing in size. You need to see your primary doctor and a GI in the next week to further evaluate for reflux and possible liver problems. A referral to a GI doctor has been provided. If you experience any worsening pain, nausea, vomiting, chest pain, difficulty breathing, or any other new or concerning symptoms, please return to the emergency room. Print Language: YORUBA - Post Discharge Activity
[2019-11-21] MEDS ORDERED: MAG HYDROX/AL HYDROX/SIMETH 30 ML UNIT-DOSE CUP ONE (01:02)
[2019-11-21] MEDS ORDERED: VALSARTAN 80 MG TABLET (UD) ONE (01:02)
--- NOTE | 2019-11-21 09:08 | EKG ---
Test Reason : Blood Pressure : / mmHG Vent. Rate : 074 BPM Atrial Rate : 074 BPM P-R Int : 162 ms QRS Dur : 066 ms QT Int : 536 ms P-R-T Axes : 072 020 042 degrees QTc Int : 594 ms NORMAL SINUS RHYTHM NONSPECIFIC T WAVE ABNORMALITY ABNORMAL ECG Confirmed by Dom Peacock MD ([id number]) on 11/21/2019 9:07:57 AM Referred By: Confirmed By:Dom Peacock MD
[2019-11-22 04:40] VITALS: BP 192/103; PULSE 75; BMI 30.7
[2019-11-22 05:08] VITALS: TEMP 98
== END 2019-11-21 03:01 | disposition home or self-care (01) ==
LOC: JER 17:43
PROC: 3E0333Z Introduction of Anti-inflammatory into Peripheral Vein, Percutaneous Approach (ICD-10-PCS; principal; 2019-11-20)
PROC: 3E033GC Introduction of Other Therapeutic Substance into Peripheral Vein, Percutaneous Approach (ICD-10-PCS; 2019-11-20)
DX: R10.84 Generalized abdominal pain (principal)
CPT/HCPCS: 36415; 74177-TC; 80053; 81003; 82550; 82553; 83605; 83880; 84484; 84702; 84703; 85025; 85610; 85730; 86850; 86900; 86901; 87077; 87086; 93005; 93010; 99285-25; J0131; Q9967

== ENCOUNTER 2020-09-17 17:17 | Emergency (ER) | payer OTHER ==
[2020-09-17 17:33] VITALS: BMI 33.1
[2020-09-17 19:10] LABS: BASO % 0.7 % (0-2.0); EOS % 1.5 % (0-4.5); HEMATOCRIT 49.7 % (32.4-45.2); HEMOGLOBIN 16.1 GM/dL (10.7-15.3); LYMPH % 26.8 % (8-40); MCH 25.5 pg (25.7-33.7); MCHC 32.5 g/dl (32.0-36.0); MEAN CELL VOLUME 78.7 fl (80-96); MEAN PLT VOLUME 7.9 fl (7.5-11.1); MONO % 8.5 % (3.8-10.2); NEUT % 62.5 % (42.8-82.8); PLATELET COUNT 307 10^3/uL (134-434); RBC 6.32 M/mm3 (3.60-5.2); RDW 13.8 % (11.6-15.6); WHITE BLOOD COUNT 11.5 K/mm3 (4.0-10.0)
[2020-09-17 19:32] LABS: CALCIUM 9.8 mg/dL (8.5-10.1)
[2020-09-17 19:33] LABS: ALBUMIN 3.7 g/dl (3.4-5.0); BLOOD UREA NITROGEN 10.8 mg/dL (7-18)
[2020-09-17 19:36] LABS: CREATININE 0.7 mg/dL (0.55-1.3)
[2020-09-17 19:38] LABS: BILIRUBIN,TOTAL 0.6 mg/dL (0.2-1); TOT PROT 7.9 g/dl (6.4-8.2)
[2020-09-17] MEDS ORDERED: morphine CARPU-JECT 4 MG/1 ML DISP.SYRIN IVPUSH ONE (19:59)
[2020-09-17] MEDS ORDERED: CLINDAMYCIN 600MG PREMIX IVPB 600 MG/50 ML BAG IVPB ONE ×2 (19:59→20:26)
[2020-09-17] MEDS ORDERED: metFORMIN HCL 500 MG TABLET (FP) PO ONE (20:15)
[2020-09-17] MEDS ORDERED: FLUCONAZOLE 150 MG TABLET PO ONE ×2 (20:15→20:26)
[2020-09-17] MEDS ORDERED: amLODIPine BESYLATE 10 MG TABLET (FP) PO ONE (20:16)
[2020-09-17 20:18] VITALS: TEMP 98
[2020-09-17] MEDS ORDERED: VALSARTAN 160 MG TABLET PO ONE (20:18)
[2020-09-17] MEDS ORDERED: morphine SULFATE 4 MG/ML VIAL ONE (20:25)
[2020-09-17] MEDS ORDERED: metFORMIN HCL 500 MG TABLET (FP) ONE (20:26)
[2020-09-17] MEDS ORDERED: VALSARTAN 80 MG TABLET ONE (20:26)
[2020-09-17 22:16] VITALS: BP 138/89; PULSE 89
== END 2020-09-17 22:15 | disposition home or self-care (01) ==
LOC: JER 17:17
PROC: 3E03329 Introduction of Other Anti-infective into Peripheral Vein, Percutaneous Approach (ICD-10-PCS; principal; 2020-09-17)
PROC: 3E033NZ Introduction of Analgesics, Hypnotics, Sedatives into Peripheral Vein, Percutaneous Approach (ICD-10-PCS; 2020-09-17)
PROC: 0H97XZZ Drainage of Abdomen Skin, External Approach (ICD-10-PCS; 2020-09-17)
DX: L02.211 Cutaneous abscess of abdominal wall (principal); E11.65 Type 2 diabetes mellitus with hyperglycemia; B35.6 Tinea cruris
CPT/HCPCS: 36415; 80053; 81003; 84702; 84703; 85025; 86850; 86900; 86901; 87086; 93005; 93010; 99285-25

== ENCOUNTER 2020-09-22 10:20 | Emergency (ER) | payer OTHER ==
[2020-09-22 10:25] VITALS: BP 158/93; PULSE 97; TEMP 98; BMI 33.5
== END 2020-09-22 11:28 | disposition home or self-care (01) ==
LOC: JERFT 10:20
DX: Z48.00 Encounter for change or removal of nonsurgical wound dressing (principal)
CPT/HCPCS: 36415; 80307; 99281-25

== ENCOUNTER 2020-10-27 11:03 | Inpatient (IN) | payer OTHER ==
[2020-10-27 11:22] VITALS: TEMP 97.8; BMI 32.5
[2020-10-27] MEDS ORDERED: ALBUTEROL SO4 2.5/IPRATROPIUM 0.5 INH SOL 3 ML VIAL.NEB. NEB ONE (11:55)
[2020-10-27] MEDS: ALBUTEROL SO4 2.5/IPRATROPIUM 0.5 INH SOL 3 ML VIAL.NEB. NEB SCH ×4 (12:12→13:27)
[2020-10-27 12:21] LABS: BASO % 0.5 % (0-2.0); HEMOGLOBIN 15.4 GM/dL (10.7-15.3); MCH 26.5 pg (25.7-33.7); MCHC 33.4 g/dl (32.0-36.0); MEAN CELL VOLUME 79.3 fl (80-96); MEAN PLT VOLUME 8.3 fl (7.5-11.1); MONO % 7.5 % (3.8-10.2); PLATELET COUNT 295 10^3/uL (134-434); RDW 14.1 % (11.6-15.6); WHITE BLOOD COUNT 8.7 K/mm3 (4.0-10.0)
[2020-10-27 12:31] VITALS: PULSE 79
[2020-10-27 12:39] LABS: CHLORIDE 102 mmol/L (98-107); SODIUM 136 mmol/L (136-145)
[2020-10-27 12:41] LABS: CALCIUM 8.8 mg/dL (8.5-10.1)
[2020-10-27 12:42] LABS: ALBUMIN 3.1 g/dl (3.4-5.0); ANION GAP 10 MMOL/L (8-16); BLOOD UREA NITROGEN 13.2 mg/dL (7-18); CO2 25 mmol/L (21-32); MAGNESIUM 1.9 mg/dL (1.8-2.4)
[2020-10-27 12:45] LABS: CREATININE 0.9 mg/dL (0.55-1.3); SGOT/AST 12 U/L (15-37); SGPT/ALT 21 U/L (13-61)
[2020-10-27 12:47] LABS: BILIRUBIN,TOTAL 0.3 mg/dL (0.2-1); TOT PROT 6.9 g/dl (6.4-8.2)
[2020-10-27 12:48] LABS: ALK PHOS 174 U/L (45-117)
[2020-10-27 12:53] LABS: URINE APPEARANCE CLEAR; URINE BILIRUBIN NEGATIVE (NEGATIVE); URINE COLOR YELLOW; URINE GLUCOSE (UA) 3+ (NEGATIVE); URINE KETONE NEGATIVE (NEGATIVE); URINE LEUK ESTERASE NEGATIVE (NEGATIVE); URINE NITRITE NEGATIVE (NEGATIVE); URINE PROTEIN NEGATIVE (NEGATIVE); URINE UROBILINOGEN 0.2 mg/dL (0.2-1.0)
[2020-10-27 12:55] LABS: GLUCOSE,RANDOM 515 mg/dL (74-106)
[2020-10-27 12:56] LABS: HCG,QUALITATIVE URINE Negative
[2020-10-27] MEDS ORDERED: LACTATED RINGERS SOLUTION 1000 ML INFUS.BAG IV ONE ×2 (12:59→16:48)
[2020-10-27] MEDS ORDERED: MAGNESIUM SULF 50% (8.12 MEQ/2 ML-1 GM VIAL) IVPB ONE (13:23)
[2020-10-27] MEDS ORDERED: methylPREDNISolone NA SUCC 125 MG/2 ML VIAL IVPUSH ONE (13:23)
[2020-10-27] MEDS ORDERED: ALBUTEROL SO4 0.5 % INH SOLN 2.5 MG/0.5 ML VIAL.NEB. NEB PRN (13:23)
[2020-10-27] MEDS ORDERED: methylPREDNISolone NA SUCC 125 MG/2 ML VIAL ONE (13:28)
[2020-10-27] MEDS ORDERED: MAGNESIUM SULFATE IN WATER 2 GM/50 ML IVPB IVPB ONE (13:28)
[2020-10-27] MEDS ORDERED: INSULIN REGULAR HUMAN 100 UNITS/ML *VIAL IVPUSH ONE (13:47)
[2020-10-27] MEDS: ALBUTEROL SO4 0.5 % INH SOLN 2.5 MG/0.5 ML VIAL.NEB. NEB PRN ×4 (13:53→15:11)
[2020-10-27] MEDS ORDERED: ALBUTEROL SO4 0.5 % INH SOLN 2.5 MG/0.5 ML VIAL.NEB. NEB ONE (14:00)
[2020-10-27] MEDS ORDERED: VANCOMYCIN 1 GM in D5W (PRE-DOCKED) 1,000 MG/250 ML IVPB ONE (14:06)
[2020-10-27] MEDS ORDERED: VANCOMYCIN 1 GRAM (PRE-DOCKED) 1,000 MG/250 ML BAG IVPB ONE (14:21)
[2020-10-27 14:45] VITALS: BP 157/86
== END 2020-10-27 18:39 | disposition left against medical advice (07) | DRG 364 ==
LOC: JER 11:03 → JERBED 14:06
PROVIDERS: ADMIT Internal Medicine; ATTEND Internal Medicine
PROC: 0H99XZZ Drainage of Perineum Skin, External Approach (ICD-10-PCS; principal; 2020-10-27)
DX: L02.214 Cutaneous abscess of groin (principal); J45.901 Unspecified asthma with (acute) exacerbation; E78.5 Hyperlipidemia, unspecified; I10 Essential (primary) hypertension; F17.210 Nicotine dependence, cigarettes, uncomplicated; E11.65 Type 2 diabetes mellitus with hyperglycemia; R45.1 Restlessness and agitation
CPT/HCPCS: 36415; 71045-TC-FY; 80053; 81003; 82962; 83735; 84484; 84703; 85025; 87086; 93005; 93010; 99285-25; C9803; U0003; U0005

== ENCOUNTER 2022-01-10 02:41 | Emergency (ER) | payer OTHER ==
[2022-01-10 03:06] VITALS: BP 181/110; PULSE 99; RESP 18; TEMP 98.3; BMI 27.4
[2022-01-10] MEDS ORDERED: SODIUM CHLORIDE 0.9% 500 ML INFUS.BAG IV ONE (03:39)
[2022-01-10 04:10] LABS: BASO % 1.5 % (0-2.0); EOS % 1.1 % (0-4.5); HEMATOCRIT 47.1 % (32.4-45.2); HEMOGLOBIN 15.4 GM/dL (10.7-15.3); LYMPH % 29.2 % (8-40); MCH 26.1 pg (25.7-33.7); MCHC 32.7 g/dl (32.0-36.0); MEAN CELL VOLUME 79.7 fl (80-96); MONO % 7.1 % (3.8-10.2); NEUT % 61.1 % (42.8-82.8); PLATELET COUNT 303 10^3/uL (134-434); RBC 5.91 M/mm3 (3.60-5.2); RDW 13.6 % (11.6-15.6); WHITE BLOOD COUNT 10.3 K/mm3 (4.0-10.0)
[2022-01-10 04:13] LABS: URINE APPEARANCE CLEAR; URINE BILIRUBIN NEGATIVE (NEGATIVE); URINE COLOR YELLOW; URINE GLUCOSE (UA) 3+ (NEGATIVE); URINE KETONE NEGATIVE (NEGATIVE); URINE LEUK ESTERASE NEGATIVE (NEGATIVE); URINE NITRITE NEGATIVE (NEGATIVE); URINE PROTEIN NEGATIVE (NEGATIVE); URINE UROBILINOGEN 0.2 mg/dL (0.2-1.0)
[2022-01-10 04:29] LABS: CHLORIDE 102 mmol/L (98-107); SODIUM 136 mmol/L (136-145)
[2022-01-10 04:31] LABS: ALBUMIN 3.3 g/dl (3.4-5.0); ANION GAP 9 MMOL/L (8-16); BLOOD UREA NITROGEN 14.6 mg/dL (7-18); CALCIUM 9.5 mg/dL (8.5-10.1); CO2 25 mmol/L (21-32); LIPASE 484 U/L (73-393)
[2022-01-10 04:35] LABS: CREATININE 0.9 mg/dL (0.55-1.3); SGOT/AST 11 U/L (15-37); SGPT/ALT 19 U/L (13-61)
[2022-01-10 04:37] LABS: ALK PHOS 169 U/L (45-117); BILIRUBIN,TOTAL 0.4 mg/dL (0.2-1); TOT PROT 7.2 g/dl (6.4-8.2)
[2022-01-10 04:53] LABS: GLUCOSE,RANDOM 521 mg/dL (74-106)
[2022-01-10] MEDS ORDERED: INSULIN REGULAR HUMAN 100 UNITS/ML *VIAL IVPUSH ONE (06:17)
[2022-01-10] MEDS ORDERED: FLUCONAZOLE 50 MG TABLET PO ONE (06:18)
== END 2022-01-10 06:35 | disposition left against medical advice (07) ==
LOC: JER 02:41
PROC: 3E013VG Introduction of Insulin into Subcutaneous Tissue, Percutaneous Approach (ICD-10-PCS; principal; 2022-01-10)
DX: R10.9 Unspecified abdominal pain (principal)
CPT/HCPCS: 36415; 74176-TC; 80053; 81003; 83690; 84703; 85025; 87086; 93005; 93010; 99285-25